=== PATIENT | male | born 2000 | race Two or more races ===

== ENCOUNTER 2020-05-02 21:11 | Emergency (ER) | payer SELFPAY ==
[~2020-05-02] VITALS: Ht 175.3 cm; Wt 99.8 kg
[2020-05-02] MEDS ORDERED: Lidocaine 1% Plain 30 ml INJ ONE (21:15)
[2020-05-02 21:16] VITALS: BP 139/81
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
--- NOTE | 2020-05-02 21:30 | NUR ---
ED Nurse Note: erpa at bedside for suture. dressing and brace applied to right arm
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
[2020-05-02] MEDS ORDERED: MUPIROCIN22 GM TOPIC (21:46)
[2020-05-02 21:50] VITALS: BP 129/76
--- NOTE | 2020-05-02 21:50 | NUR ---
ER DISCHARGE NOTE: Patient is cleared to be discharged per ERMD, pt is aox4, on room air, with stable vital signs. inspector subassembly was given dc and prescription instructions, pt was able to verbalize understanding, pt id band removed without complications. pt is able to ambulate with steady gait in inspector subassembly custody.
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
== END 2020-05-02 21:50 ==
LOC: EMR 21:23
DX: S61.411A Laceration without foreign body of right hand, initial encounter (principal); W26.8XXA Contact with other sharp object(s), not elsewhere classified, initial encounter; Y92.9 Unspecified place or not applicable
CPT/HCPCS: 12001; 29130; 73130; 99283; J2001